=== PATIENT | female | born 1980 | race African-American/Black ===

== ENCOUNTER 2018-09-25 09:12 | Emergency (ER) | payer MEDICAID ==
[~2018-09-25] VITALS: Ht 172.7 cm; Wt 83.0 kg
[~2018-09-25 09:12] MED LIST: HYDR-3965 PO
[2018-09-25 09:29] VITALS: BP 111/64
== END 2018-09-25 10:47 | disposition home or self-care (01) ==
LOC: ER 09:12
DX: S90.422A Blister (nonthermal), left great toe, initial encounter (principal); S90.425A Blister (nonthermal), left lesser toe(s), initial encounter; J45.909 Unspecified asthma, uncomplicated; F12.90 Cannabis use, unspecified, uncomplicated; F15.90 Other stimulant use, unspecified, uncomplicated; Z88.5 Allergy status to narcotic agent; Z79.899 Other long term (current) drug therapy; Z56.0 Unemployment, unspecified; Z59.0 Homelessness; X58.XXXA Exposure to other specified factors, initial encounter; Y93.01 Activity, walking, marching and hiking; Y92.89 Other specified places as the place of occurrence of the external cause; Y99.8 Other external cause status
CPT/HCPCS: 99282

== ENCOUNTER 2018-10-16 13:17 | Emergency (ER) | payer MEDICAID ==
[~2018-10-16] VITALS: Ht 172.7 cm; Wt 107.2 kg
[2018-10-16 13:18] VITALS: BP 124/74
[2018-10-16 14:06] LABS: URINE HCG NEGATIVE (NEG)
[2018-10-16 14:14] LABS: BASOPHILS % (AUTO) 0.7 % (0-1); EOSINOPHILS # (AUTO) 0.1 X10'3 (0-0.9); EOSINOPHILS % (AUTO) 1.6 % (0-6); HEMATOCRIT 37.1 % (35.0-45.0); HEMOGLOBIN 11.9 g/dl (12.0-16.0); LYMPHOCYTES # (AUTO) 1.6 X10'3 (1.1-4.8); LYMPHOCYTES % (AUTO) 24.8 % (21-51); MEAN CORPUSCULAR HEMOGLOBIN 28.6 PG (27.0-31.0); MEAN CORPUSCULAR HGB CONC 32.1 % (33.0-36.5); MEAN CORPUSCULAR VOLUME 88.9 FL (78-98); MEAN PLATELET VOLUME 8.4 FL (7.4-10.4); MONOCYTES # (AUTO) 0.6 X10'3 (0-0.9); MONOCYTES % (AUTO) 8.7 % (2-12); NEUTROPHILS # (AUTO) 4.3 X10'3 (1.8-7.7); NEUTROPHILS % (AUTO) 64.2 % (42-75); PLATELET COUNT 310 X10'3 (140-440); RED BLOOD COUNT 4.17 X10'6 (4.20-5.60); RED CELL DISTRIBUTION WIDTH 13.9 % (11.5-14.5); WHITE BLOOD COUNT 6.7 X10'3 (4.5-11.0)
[2018-10-16 14:17] LABS: CLARITY,URINE SLIGHTLY CLOUDY (Clear); COLOR,URINE YELLOW (Yellow); GLUCOSE, URINE NEGATIVE (Neg); KETONES,URINE NEGATIVE (Neg); LEUKOCYTE ESTERASE ,URINE NEGATIVE (Neg); NITRITES, URINE NEGATIVE (Neg); OCCULT BLOOD,URINE NEGATIVE (Neg); PH,URINE 6.5 (4.8-8.0); PROTEIN,URINE NEGATIVE (Neg)
[2018-10-16 14:25] LABS: UA COLLECTION TYPE CLN CATCH MIDSTREAM
[2018-10-16 14:34] LABS: RBC,URINE 0-2 /HPF (0-2)
[2018-10-16 14:35] LABS: AMORPHOUS URATES 1+; BACTERIA,URINE NONE SEEN /HPF (Neg); CAL OXALATE CRYSTALS 3+ /HPF (NEGATIVE); SQUAMOUS EPITHELIAL CELL,UR MODERATE /LPF (FEW)
[2018-10-16 14:39] LABS: ALANINE AMINOTRANSFERASE 22 U/L (12-78); ALBUMIN 3.2 G/DL (3.4-5.0); ALBUMIN/GLOBULIN RATIO 0.8 (1.1-1.5); ALKALINE PHOSPHATASE 50 IU/L (46-116); ANION GAP 10 (8-16); ASPARTATE AMINO TRANSFERASE 18 U/L (10-37); BILIRUBIN,TOTAL 0.1 MG/DL (0.1-1.0); BLOOD UREA NITROGEN 8 MG/DL (7-18); BUN/CREATININE RATIO 10.5 (6.6-38.0); CALCIUM 8.8 MG/DL (8.5-10.1); CHLORIDE 105 MMOL/L (99-107); CREATININE 0.76 MG/DL (0.40-0.90); GLUCOSE 95 MG/DL (70-104); LIPASE 96 U/L (73-393); POTASSIUM 3.8 MMOL/L (3.5-5.1); SODIUM 142 MMOL/L (135-145); TOTAL CARBON DIOXIDE 26.7 MMOL/L (24-32); TOTAL PROTEIN 7.1 G/DL (6.4-8.2); eGFR > 90 ML/MIN
[2018-10-16 15:03] LABS: EOSINOPHILS % (MANUAL) 2 % (0-6); LYMPHOCYTES % (MANUAL) 33 % (21-51); MONOCYTES % (MANUAL) 7 % (2-12); NEUTROPHILS % (MANUAL) 58 % (42-75); NUCLEATED RED BLOOD CELLS 1 /100WBC (0-0); TOTAL CELLS COUNTED 100
[2018-10-16 15:05] LABS: SMUDGE CELLS 1+
[2018-10-16] MEDS ORDERED: ketorolac tromethamine 15mg/ml inj. IM ONE (15:55)
[2018-10-16 22:30] LABS: PLATELET ESTIMATE NORMAL
== END 2018-10-16 16:14 | disposition home or self-care (01) ==
LOC: ER 13:17
DX: M25.561 Pain in right knee (principal); J45.909 Unspecified asthma, uncomplicated; F12.90 Cannabis use, unspecified, uncomplicated; F15.90 Other stimulant use, unspecified, uncomplicated; Z88.5 Allergy status to narcotic agent; Z79.899 Other long term (current) drug therapy; Z56.0 Unemployment, unspecified
CPT/HCPCS: 36415; 73560; 80053; 81001; 81025; 83690; 85025; 85610; 87088; 96372; 99284; J1885

== ENCOUNTER 2018-11-15 19:55 | Emergency (ER) | payer MEDICAID ==
[~2018-11-15] VITALS: Ht 172.7 cm; Wt 101.2 kg
[2018-11-15 19:59] VITALS: BP 133/49
== END 2018-11-15 23:55 | disposition left against medical advice (07) ==
LOC: ER 19:55
DX: M79.605 Pain in left leg (principal); M79.604 Pain in right leg; Z53.21 Procedure and treatment not carried out due to patient leaving prior to being seen by health care provider

== ENCOUNTER 2022-10-25 12:01 | Emergency (ER) | payer MEDICAID ==
[~2022-10-25] VITALS: Ht 172.7 cm; Wt 113.6 kg
[2022-10-25 12:58] VITALS: BP 133/77
[2022-10-25 13:32] LABS: BASOPHILS # (AUTO) 0.1 X10'3 (0-0.2); BASOPHILS % (AUTO) 0.6 % (0-1); EOSINOPHILS # (AUTO) 0.2 X10'3 (0-0.9); EOSINOPHILS % (AUTO) 2.4 % (0-6); HEMATOCRIT 39.5 % (35.0-45.0); HEMOGLOBIN 12.8 g/dl (12.0-16.0); LYMPHOCYTES # (AUTO) 2.2 X10'3 (1.1-4.8); LYMPHOCYTES % (AUTO) 27.3 % (21-51); MEAN CORPUSCULAR HEMOGLOBIN 29.3 PG (27.0-31.0); MEAN CORPUSCULAR HGB CONC 32.5 g/dL (33.0-36.5); MEAN CORPUSCULAR VOLUME 90.2 FL (78-98); MEAN PLATELET VOLUME 7.6 FL (7.4-10.4); MONOCYTES # (AUTO) 0.4 X10'3 (0-0.9); MONOCYTES % (AUTO) 5.1 % (2-12); NEUTROPHILS # (AUTO) 5.1 X10'3 (1.8-7.7); NEUTROPHILS % (AUTO) 64.6 % (42-75); PLATELET COUNT 288 X10'3 (140-440); RED BLOOD COUNT 4.39 X10'6 (4.20-5.60); RED CELL DISTRIBUTION WIDTH 14.8 % (11.5-14.5); WHITE BLOOD COUNT 7.9 X10'3 (4.5-11.0)
[2022-10-26] MEDS ORDERED: QUET-1 PO (22:26)
[2022-10-26] MEDS ORDERED: ARIP10TA14 PO (22:26)
== END 2022-10-25 14:33 | disposition home or self-care (01) ==
LOC: ER 12:02
DX: K42.9 Umbilical hernia without obstruction or gangrene (principal); J45.909 Unspecified asthma, uncomplicated; F12.10 Cannabis abuse, uncomplicated; F15.10 Other stimulant abuse, uncomplicated; Z59.00 Homelessness unspecified; Z88.5 Allergy status to narcotic agent; Z79.899 Other long term (current) drug therapy
CPT/HCPCS: 36415; 74176; 85025; 99284

== ENCOUNTER 2022-10-26 11:00 | Inpatient (IN) | payer MEDICAID ==
[~2022-10-26] VITALS: Ht 172.7 cm; Wt 113.6 kg
[2022-10-26 12:57] LABS: BASOPHILS % (AUTO) 0.4 % (0-1); EOSINOPHILS # (AUTO) 0.1 X10'3 (0-0.9); EOSINOPHILS % (AUTO) 1.5 % (0-6); HEMATOCRIT 40.9 % (35.0-45.0); HEMOGLOBIN 13.3 g/dl (12.0-16.0); LYMPHOCYTES # (AUTO) 1.9 X10'3 (1.1-4.8); LYMPHOCYTES % (AUTO) 21.1 % (21-51); MEAN CORPUSCULAR HEMOGLOBIN 29.4 PG (27.0-31.0); MEAN CORPUSCULAR HGB CONC 32.6 g/dL (33.0-36.5); MEAN CORPUSCULAR VOLUME 90.2 FL (78-98); MEAN PLATELET VOLUME 7.9 FL (7.4-10.4); MONOCYTES # (AUTO) 0.5 X10'3 (0-0.9); MONOCYTES % (AUTO) 5.2 % (2-12); NEUTROPHILS # (AUTO) 6.5 X10'3 (1.8-7.7); NEUTROPHILS % (AUTO) 71.8 % (42-75); PLATELET COUNT 307 X10'3 (140-440); RED BLOOD COUNT 4.53 X10'6 (4.20-5.60); RED CELL DISTRIBUTION WIDTH 14.8 % (11.5-14.5); WHITE BLOOD COUNT 9.1 X10'3 (4.5-11.0)
[2022-10-26 13:07] LABS: GLUCOSE 119 MG/DL (70-104); SODIUM 137 MMOL/L (135-145)
[2022-10-26 13:08] LABS: ALANINE AMINOTRANSFERASE 28 U/L (12-78); ALBUMIN 3.5 G/DL (3.4-5.0); ALBUMIN/GLOBULIN RATIO 0.8 (1.1-1.5); ALKALINE PHOSPHATASE 60 IU/L (46-116); ANION GAP 6 (8-16); ASPARTATE AMINO TRANSFERASE 21 U/L (10-37); BILIRUBIN,TOTAL 0.4 MG/DL (0.1-1.0); BLOOD UREA NITROGEN 9 MG/DL (7-18); BUN/CREATININE RATIO 9.8 (6.6-38.0); CHLORIDE 104 MMOL/L (99-107); CREATININE 0.92 MG/DL (0.40-0.90); LIPASE 72 U/L (73-393); POTASSIUM 3.7 MMOL/L (3.5-5.1); TOTAL PROTEIN 7.7 G/DL (6.4-8.2); eGFR 81 ML/MIN
[2022-10-26] MEDS ORDERED: HYDROcodone/acetaminophen 10/325mg tab PO ONE (16:30)
[2022-10-26] MEDS ORDERED: ondansetron 4mg rapidly disintigrating tab PO ONE (16:30)
[2022-10-26] MEDS ORDERED: LORazepam 1 MG tablet PO ONE (17:25)
[2022-10-26] MEDS ORDERED: fentaNYL/PF 50MCG/1 ML 2ML syringe IV ONE ×2 (17:55→18:50)
[2022-10-26 20:30] LABS: CLARITY,URINE SLIGHTLY CLOUDY (Clear); COLOR,URINE YELLOW (Yellow); GLUCOSE, URINE NEGATIVE (Neg); KETONES,URINE NEGATIVE (Neg); LEUKOCYTE ESTERASE ,URINE NEGATIVE (Neg); NITRITES, URINE NEGATIVE (Neg); OCCULT BLOOD,URINE TRACE-INTACT (Neg); PH,URINE 5.5 (4.8-8.0); PROTEIN,URINE NEGATIVE (Neg); UROBILINOGEN,URINE 0.2 E.U/dL (0.2-1.0)
[2022-10-26 20:32] LABS: URINE HCG NEGATIVE (NEG)
[2022-10-26 20:38] LABS: UA COLLECTION TYPE CLN CATCH MIDSTREAM
[2022-10-26 20:39] LABS: MUCUS STRANDS MODERATE /LPF (Neg); SQUAMOUS EPITHELIAL CELL,UR MANY /LPF (FEW)
[2022-10-26 20:40] LABS: CELLULAR CAST 0-4 /LPF (NEGATIVE); HYALINE CASTS 0-3 /LPF (NEGATIVE)
[2022-10-26 20:41] LABS: RBC,URINE 0-2 /HPF (0-2)
[2022-10-26 20:42] LABS: CAL OXALATE CRYSTALS 4+ /HPF (NEGATIVE)
[2022-10-26 20:43] LABS: BACTERIA,URINE FEW /HPF (Neg)
[2022-10-26] MEDS ORDERED: HYDROmorphone inj. 0.5 MG/0.5 ML DISP.SYRIN IV ONE (22:25)
[2022-10-26] MEDS ORDERED: QUET-1 PO (22:26)
[2022-10-26] MEDS ORDERED: ARIP10TA14 PO (22:26)
[2022-10-26] MEDS ORDERED: magnesium Cl slow-release 64mg tablet PO PRN (22:30)
[2022-10-26] MEDS ORDERED: ondansetron/PF 4mg/2ml inj IV PRN (22:30)
[2022-10-26] MEDS ORDERED: magnesium hydroxide 30ml (MOM) UD suspension PO PRN (22:30)
[2022-10-26] MEDS ORDERED: potassium Cl 20 mEq SR tablet PO PRN ×2 (22:30)
[2022-10-26] MEDS ORDERED: magnesium 4gm in 100ml NS 100 ML IV PRN (22:30)
[2022-10-26] MEDS ORDERED: potassium Cl 40MEQ/1/2NS 520ml 520 ML IV PRN (22:30)
[2022-10-26] MEDS ORDERED: mag hydrox/Alum hydrox/simeth 30ml oral suspension PO PRN (22:30)
[2022-10-26] MEDS: normal saline 1000ml 1,000 ML IV SCH (23:51)
[2022-10-26] MEDS: ceFAZolin/D5W- 1GM premix 50 ML IV SCH (23:51)
[2022-10-27] VITALS (20 sets, daily range): BP systolic 100–150; BP diastolic 64–97
--- NOTE | 2022-10-27 | NUR ---
per Dr. Rizzo, pt can eat until 0800 10/27/21. NPO AT 0800.
[2022-10-27] MEDS ORDERED: NO HOME MEDS (02:03)
[2022-10-27] MEDS ORDERED: QUEtiapine 25mg tablet PO ONE (02:10)
[2022-10-27 03:37] LABS: BASOPHILS # (AUTO) 0.1 X10'3 (0-0.2); BASOPHILS % (AUTO) 0.7 % (0-1); EOSINOPHILS # (AUTO) 0.2 X10'3 (0-0.9); EOSINOPHILS % (AUTO) 1.7 % (0-6); HEMATOCRIT 38.7 % (35.0-45.0); HEMOGLOBIN 12.6 g/dl (12.0-16.0); LYMPHOCYTES % (AUTO) 22.5 % (21-51); MEAN CORPUSCULAR HEMOGLOBIN 29.3 PG (27.0-31.0); MEAN CORPUSCULAR HGB CONC 32.5 g/dL (33.0-36.5); MEAN CORPUSCULAR VOLUME 90.1 FL (78-98); MEAN PLATELET VOLUME 7.9 FL (7.4-10.4); MONOCYTES # (AUTO) 0.6 X10'3 (0-0.9); MONOCYTES % (AUTO) 6.4 % (2-12); NEUTROPHILS # (AUTO) 6.2 X10'3 (1.8-7.7); NEUTROPHILS % (AUTO) 68.7 % (42-75); PLATELET COUNT 282 X10'3 (140-440)
[2022-10-27 03:48] LABS: ALANINE AMINOTRANSFERASE 25 U/L (12-78); ALBUMIN 3.3 G/DL (3.4-5.0); ALBUMIN/GLOBULIN RATIO 0.8 (1.1-1.5); ALKALINE PHOSPHATASE 52 IU/L (46-116); ANION GAP 6 (8-16); ASPARTATE AMINO TRANSFERASE 15 U/L (10-37); BILIRUBIN,TOTAL 0.4 MG/DL (0.1-1.0); BLOOD UREA NITROGEN 11 MG/DL (7-18); BUN/CREATININE RATIO 12.6 (6.6-38.0); CALCIUM 8.6 MG/DL (8.5-10.1); CHLORIDE 104 MMOL/L (99-107); CREATININE 0.87 MG/DL (0.40-0.90); GLUCOSE 129 MG/DL (70-104); MAGNESIUM 2.1 MG/DL (1.5-2.4); POTASSIUM 3.7 MMOL/L (3.5-5.1); SODIUM 136 MMOL/L (135-145); TOTAL CARBON DIOXIDE 26.5 MMOL/L (24-32); TOTAL PROTEIN 7.3 G/DL (6.4-8.2); eGFR 86 ML/MIN
--- NOTE | 2022-10-27 07:23 | NUR ---
REPORT FROM MICHELLE SORIANO FOR CONTINUATION OF CARE. PT IS AO4 AMBULATORY TO RESTROOM. RESP EVEN UNLABORED. SKINW/D/I PINK. PT PAIN LOCATION UMBILICAL 04/18.
[2022-10-27] MEDS: ceFAZolin/D5W- 1GM premix 50 ML IV SCH ×3 (07:47→23:56)
[2022-10-27] MEDS: HYDROmorphone inj. 0.5 MG/0.5 ML DISP.SYRIN IV PRN ×2 (07:57→14:15)
[2022-10-27] MEDS: K and/or MAG REPLACEMENT MC SCH ×2 (08:00→20:00)
[2022-10-27] MEDS: docusate sod 100mg capsule PO SCH ×2 (08:00→21:11)
[2022-10-27] MEDS: normal saline 1000ml 1,000 ML IV SCH ×2 (08:30→23:55)
[2022-10-27] MEDS ORDERED: BUPIVAcaine 0.5% inj/PF 30 ML ONE ×2 (16:53→17:15)
[2022-10-27] MEDS ORDERED: LIDOcaine 1% 30ml preserv. free vial ONE (16:53)
[2022-10-27] MEDS ORDERED: sevoflurane 250ml liquid IH ONE (16:54)
[2022-10-27] MEDS ORDERED: midazolam 1 mg/ML 2ml injection ONE (16:59)
[2022-10-27] MEDS ORDERED: BUPIVACAINE liposomal/PF 13.3 MG/ML vial IM ONE (17:15)
[2022-10-27] MEDS ORDERED: ceFAZolin 1000mg inj ONE (17:25)
[2022-10-27] MEDS ORDERED: rocuronium 10mg/ml inj IV ONE (17:25)
[2022-10-27] MEDS ORDERED: LIDOcaine 1%/PF 5ML 10 MG/ML VIAL ONE ×2 (17:25)
[2022-10-27] MEDS ORDERED: fentaNYL /PF 50mcg/ml 5ml ampule ONE (17:25)
[2022-10-27] MEDS ORDERED: propofol inj 20 ML IV ONE (17:25)
[2022-10-27] MEDS ORDERED: dexamethasone sod phosphate 4mg/ml inj. ONE (17:27)
[2022-10-27] MEDS ORDERED: ondansetron/PF 4mg/2ml inj ONE (17:27)
[2022-10-27] MEDS ORDERED: BUPIVAcaine 0.5% inj/PF 30 ml vial IJ ONE (17:43)
[2022-10-27] MEDS ORDERED: neostigmine methylsulfate 1 MG/ML 10ml vial ONE (18:06)
[2022-10-27] MEDS ORDERED: glycopyrrolate 0.2mg/ml inj ONE (18:06)
[2022-10-27] MEDS ORDERED: oxyCODONE/APAP 5-325mg tablet PO PRN (18:15)
[2022-10-27] MEDS ORDERED: naloxone 0.4 mg/ml inj IV PRN (18:15)
--- NOTE | 2022-10-27 18:16 | NUR ---
Received from OR via HOSPITAL BED, accompanied by Anesthesiologist DR QUINTANILLA and report given by Anesthesiolgist. PT PRESENTS WITH PIV 20G RIGHT AC, BRYAN SHEPARD, GUSTAVO, VSS. Addendum: 10/27/22 at 1830 by Emerita Paris RN, RN Amended: Links added.
[2022-10-27] MEDS ORDERED: ondansetron/PF 4mg/2ml inj IV PRN (18:25)
[2022-10-27] MEDS ORDERED: hydrALAZINE 20mg/ml inj. IV PRN (18:25)
[2022-10-27] MEDS ORDERED: HYDROmorphone/PF 0.2 MG/ML SYRINGE IV PRN ×2 (18:25)
[2022-10-27] MEDS ORDERED: acetaminophen 1,000mg/100ml IV 100 ML IV PRN (18:25)
[2022-10-27] MEDS ORDERED: meperidine/PF 25mg/ml syringe IV PRN ×3 (18:25)
[2022-10-27] MEDS ORDERED: proCHLORperazine 10 MG/2 ml inj IV PRN (18:25)
[2022-10-27] MEDS ORDERED: ringers solution, lacted 1,000 ML IV SCH (18:25)
[2022-10-27] MEDS ORDERED: labetalol 20mg/4ml (5mg/ml) syringe IV PRN (18:25)
--- NOTE | 2022-10-27 19:25 | NUR ---
Patient in room [facility]. I have received report from MICHELLE Felder and had the opportunity to ask questions and assume patient care.
--- NOTE | 2022-10-27 20:06 | NUR ---
Report called to receiving nurse SHAHNAZ MARTINEZ. Transferred via [facility] TO ROOM 360B. BED IN LOW LOCKED POSITION WITH CALL LIGHT IN REACH. PT ASSISTED TO THE BATHROOM AND GOWN CHANGE. PT HOOKED P TO VITALS MACHINE. PT HAS 1 PT Belongings BAG TO ROOOM 360B. special Issues communicated to receiving nurse. Addendum: 10/27/22 at 2016 by Emerita Paris RN RN Amended: Links added.
[2022-10-27] MEDS ORDERED: quetiapine 100mg tablet PO SCH (21:00)
[2022-10-27] MEDS: oxyCODONE/APAP 10/325mg tablet PO PRN (21:12)
[2022-10-27] MEDS: heparin, porcine 5000 units/ml vial SQ SCH (21:13)
[2022-10-28] MEDS: normal saline 1000ml 1,000 ML IV SCH ×2 (04:30→14:30)
[2022-10-28] MEDS: oxyCODONE/APAP 10/325mg tablet PO PRN ×3 (05:55→14:44)
--- NOTE | 2022-10-28 06:33 | NUR ---
Patient in room [facility]. I have received report from SHAHNAZ MARTINEZ and had the opportunity to ask questions and assume patient care.
[2022-10-28 06:52] LABS: BASOPHILS % (AUTO) 0.2 % (0-1); EOSINOPHILS % (AUTO) 0 % (0-6); HEMATOCRIT 41.8 % (35.0-45.0); HEMOGLOBIN 13.5 g/dl (12.0-16.0); LYMPHOCYTES % (AUTO) 8.6 % (21-51); MEAN CORPUSCULAR HEMOGLOBIN 29.2 PG (27.0-31.0); MEAN CORPUSCULAR HGB CONC 32.4 g/dL (33.0-36.5); MEAN CORPUSCULAR VOLUME 89.9 FL (78-98); MEAN PLATELET VOLUME 8.1 FL (7.4-10.4); MONOCYTES # (AUTO) 0.3 X10'3 (0-0.9); MONOCYTES % (AUTO) 2.9 % (2-12); NEUTROPHILS # (AUTO) 10.5 X10'3 (1.8-7.7); NEUTROPHILS % (AUTO) 88.3 % (42-75); PLATELET COUNT 313 X10'3 (140-440); RED BLOOD COUNT 4.65 X10'6 (4.20-5.60); RED CELL DISTRIBUTION WIDTH 14.7 % (11.5-14.5); WHITE BLOOD COUNT 11.9 X10'3 (4.5-11.0)
--- NOTE | 2022-10-28 06:53 | NUR ---
Problems reprioritized. Patient report given, questions answered & plan of care reviewed with MICHELLE Daly
[2022-10-28 07:31] LABS: ANION GAP 8 (8-16); CHLORIDE 102 MMOL/L (99-107); GLUCOSE 118 MG/DL (70-104); POTASSIUM 4.7 MMOL/L (3.5-5.1); SODIUM 134 MMOL/L (135-145); TOTAL CARBON DIOXIDE 23.9 MMOL/L (24-32)
[2022-10-28 07:32] LABS: ALANINE AMINOTRANSFERASE 25 U/L (12-78); ALBUMIN 3.7 G/DL (3.4-5.0); ALBUMIN/GLOBULIN RATIO 0.8 (1.1-1.5); ALKALINE PHOSPHATASE 60 IU/L (46-116); ASPARTATE AMINO TRANSFERASE 26 U/L (10-37); BILIRUBIN,TOTAL 0.3 MG/DL (0.1-1.0); BLOOD UREA NITROGEN 11 MG/DL (7-18); BUN/CREATININE RATIO 11.1 (6.6-38.0); CALCIUM 9.4 MG/DL (8.5-10.1); CREATININE 0.99 MG/DL (0.40-0.90); MAGNESIUM 2.4 MG/DL (1.5-2.4); TOTAL PROTEIN 8.6 G/DL (6.4-8.2); eGFR 74 ML/MIN
[2022-10-28] MEDS: K and/or MAG REPLACEMENT MC SCH (08:00)
[2022-10-28] MEDS: docusate sod 100mg capsule PO SCH (08:16)
[2022-10-28] MEDS: ceFAZolin/D5W- 1GM premix 50 ML IV SCH (08:16)
[2022-10-28] MEDS: heparin, porcine 5000 units/ml vial SQ SCH (08:19)
--- NOTE | 2022-10-28 09:00 | NUR ---
this pt did refuse her 0600 vitals
[2022-10-28 10:00] VITALS: BP 149/86
[2022-10-28] MEDS ORDERED: OXYC1TAB17 PO (13:53)
--- NOTE | 2022-10-28 15:45 | NUR ---
pt is stable for dc, iv is dc and cannula is intact, pt belongings all taken, pt dc info gone over and signed. pt was walked down to the lobby and left with in a private vehicle.
== END 2022-10-28 15:39 | disposition home or self-care (01) | DRG 228 ==
LOC: ER 11:00 → ED HOLD 22:31 → EDBEDREQ 22:47 → SUR 3N 10-27 20:01
PROVIDERS: ADMIT Internal Medicine; ATTEND Internal Medicine
PROC: 8E0W4CZ Robotic Assisted Procedure of Trunk Region, Percutaneous Endoscopic Approach (ICD-10-PCS; 2022-10-27)
PROC: 3E0T3BZ Introduction of Anesthetic Agent into Peripheral Nerves and Plexi, Percutaneous Approach (ICD-10-PCS; 2022-10-27)
PROC: 3E0T33Z Introduction of Anti-inflammatory into Peripheral Nerves and Plexi, Percutaneous Approach (ICD-10-PCS; 2022-10-27)
PROC: 0WUF4JZ Supplement Abdominal Wall with Synthetic Substitute, Percutaneous Endoscopic Approach (ICD-10-PCS; principal; 2022-10-27 16:54)
DX: K42.0 Umbilical hernia with obstruction, without gangrene (principal); E66.9 Obesity, unspecified; F31.9 Bipolar disorder, unspecified; J44.9 Chronic obstructive pulmonary disease, unspecified; F90.9 Attention-deficit hyperactivity disorder, unspecified type; Z72.0 Tobacco use; Z87.442 Personal history of urinary calculi; Z56.0 Unemployment, unspecified; Z68.38 Body mass index [BMI] 38.0-38.9, adult; Z88.5 Allergy status to narcotic agent; Z98.51 Tubal ligation status; Z79.899 Other long term (current) drug therapy
CPT/HCPCS: 36415; 74176; 80053; 81001; 81025; 83605; 83690; 83735; 84132; 85025; 87081; 93005; 99285; A4215; A4615; A4618; A6258; C1781; C9290; G0378; J0131; J0690; J1100; J1170; J1644; J2175; J2250; J2405; J2704; J2710; J3010; J3490; J7030; S0020

== ENCOUNTER 2025-04-16 11:08 | Emergency (ER) | payer MEDICAID ==
[~2025-04-16] VITALS: Ht 172.7 cm; Wt 105.9 kg
[~2025-04-16 11:08] MED LIST changes: -HYDR-3965 PO; +NO HOME MEDS; +OXYC1TAB17 PO
[2025-04-16 11:28] VITALS: BP 125/65; PULSE 99; RESP 18; TEMP 98.1; O2SAT 100
--- NOTE | 2025-04-16 11:33 | Physician Documentation ---
History of Present Illness ~ General Chief Complaint: Multiple Medical Complaints Stated Complaint: SEE CHIEF COMPLAINT Time Seen by MD: 11:41 Primary Medical Doctor: Dr Dunbar History of Present Illness Initial Comments Presents with numerous concerns including making less urine output than usual. Medication Reconciliation Allergies: Coded Allergies: morphine (Verified Allergy, Intermediate, SWOLLEN RASH, 10/25/22) Scheduled PRN Oxycodone Hcl/Acetaminophen (Oxycodone-Acetaminophen 10-325), 1 TAB PO Q4H PRN for pain 7-10 Miscellaneous Medications Home Med List (No Home Medications), (Reported) Past Medical History Past Medical History: Asthma, Kidney Stones Past Surgical History: no surgical history Alcohol Use: None Drug Use: marijuana, methamphetamine Occupation: unemployed Physical Exam Physical Exam Vital Signs: Temperature: 98.1, Source: Temporal, Heart Rate: 99, Respiratory Rate: 18, BP: 125/65, Pulse Oximetry: 100, Weight: 105.900 Oxygen Flow Rate: 0 Physical Exam General: Alert, no apparent distress. Neck: Full range of motion. Respiratory: No distress. Chest: No accessory muscle use. Extremities: Normal range of motion, no deformity. Neurologic: Oriented x4. Psychiatric: Normal mood and affect. Skin: Normal color, warm and dry. No edema, no ecchymosis. Progress Progress Note 1250: RN notifies that patient has eloped prior to full evaluation or completion of ordered UA. Results/Orders Results/Orders Orders - DENISSE CANNON NP Urinalysis, Cult If Indicated (04/16/25 11:31) Vital Signs 04/16/25 11:28 Temp 98.1 Pulse 99 Resp 18 B/P (MAP) 125/65 Pulse Ox 100 O2 Flow Rate 0 Departure Time of Disposition: 12:56 Disposition: 01 HOME / SELF CARE / HOMELESS Impression: Primary Impression: Eloped from emergency department Referrals: NO PRIMARY CARE PROVIDER (PCP) Signature Scribe Signature: x Attestation: The note accurately reflects work and decisions made by me.Denisse Paris NP 04/16/25 12:57 DENISSE CANNON NP Apr 16, 2025 11:33
== END 2025-04-16 14:49 | disposition home or self-care (01) ==
LOC: ER 11:08
DX: R30.0 Dysuria (principal); F15.90 Other stimulant use, unspecified, uncomplicated; F12.90 Cannabis use, unspecified, uncomplicated; J45.909 Unspecified asthma, uncomplicated; Z88.5 Allergy status to narcotic agent; Z79.899 Other long term (current) drug therapy; Z87.442 Personal history of urinary calculi; Z56.0 Unemployment, unspecified
CPT/HCPCS: 99282

== ENCOUNTER 2025-05-31 14:35 | Emergency (ER) | payer MEDICAID ==
[~2025-05-31] VITALS: Ht 172.7 cm; Wt 90.9 kg
[2025-05-31 14:37] VITALS: BP 133/83; PULSE 103; RESP 16; O2SAT 99
--- NOTE | 2025-05-31 14:53 | Physician Documentation ---
History of Present Illness ~ General Chief Complaint: See Chief Complaint Stated Complaint: POSS SCABIES Time Seen by MD: 14:43 Primary Medical Doctor: Dr Dunbar Source: patient Mode of Arrival: POV Exam Limitations: no limitations History of Present Illness Initial Comments 45-year-old female requiring medical clearance to state that she does not have scabies as she is in a facility where her roommate that she was with for 3 days does have scabies. No itching or lesions Medication Reconciliation Allergies: Coded Allergies: morphine (Verified Allergy, Intermediate, SWOLLEN RASH, 10/25/22) Scheduled PRN Oxycodone Hcl/Acetaminophen (Oxycodone-Acetaminophen 10-325), 1 TAB PO Q4H PRN for pain 7-10 Miscellaneous Medications Home Med List (No Home Medications), (Reported) Past Medical History Past Medical History: Asthma, Kidney Stones Past Surgical History: no surgical history Alcohol Use: None Drug Use: marijuana, methamphetamine Occupation: unemployed Review of Systems All Other Systems at this time: Reviewed and Negative Integumentary: Reports: see HPI Physical Exam Physical Exam Vital Signs: RN Vital Signs have been reviewed: Yes, Temperature: 97.2, Source: Temporal, Heart Rate: 103, Respiratory Rate: 16, BP: 133/83, Pulse Oximetry: 99, Weight: 90.910 General Appearance: alert, WD/WN, no apparent distress Respiratory: normal breath sounds, no respiratory distress Chest: no accessory muscle use Cardiovascular: regular rate, rhythm Skin: normal color, warm/dry; No: rash Progress Results/Orders Results/Orders Vital Signs 05/31/25 14:37 Temp 97.2 Pulse 103 Resp 16 B/P (MAP) 133/83 Pulse Ox 99 Medical Decision Making Findings Clearance from scabies no lesions or subjective itching Departure Time of Disposition: 14:52 Disposition: 01 HOME / SELF CARE / HOMELESS Impression: Primary Impression: General medical exam Condition: Stable Discharge Instructions: General Discharge Instructions Additional Instructions: Patient does not have any signs of having scabies patient is medically clear Referrals: NO PRIMARY CARE PROVIDER (PCP) Education Educated: Patient Educated regarding: diagnosis, treatment, need for follow up Signature Scribe Signature: No scribe Attestation: The note accurately reflects work and decisions made by me.Emerita ALVARENGA 05/31/25 14:53 EMERITA AVILA NP May 31, 2025 14:53
[2025-05-31 15:00] VITALS: TEMP 97.2
== END 2025-05-31 15:04 | disposition home or self-care (01) ==
LOC: ER 14:36
DX: B86 Scabies (principal); J45.909 Unspecified asthma, uncomplicated; F12.90 Cannabis use, unspecified, uncomplicated; F15.90 Other stimulant use, unspecified, uncomplicated; Z88.5 Allergy status to narcotic agent; Z56.0 Unemployment, unspecified; Z87.442 Personal history of urinary calculi
CPT/HCPCS: 99282